=== PATIENT | female | born 1960 | race Caucasian/White ===

== ENCOUNTER → 2016-05-28 | Outpatient (CLI) | payer OTHER ==
[~2016-05-28] MED LIST: NORCO 5-325 TA1 EACH PO
== END | disposition home or self-care (01) ==
LOC: RAD 16:11
DX: R05 Cough (principal); F17.200 Nicotine dependence, unspecified, uncomplicated; Z72.0 Tobacco use

== ENCOUNTER 2016-06-17 16:07 | Emergency (ER) | payer OTHER ==
[~2016-06-17] VITALS: Wt 68.0 kg
[2016-06-17] MEDS ORDERED: ANAPROX DS550 MG PO (17:33)
[2016-06-17] MEDS ORDERED: HYCODAN/HYDROMET5 ML PO (17:33)
[2016-06-17] MEDS ORDERED: TESSALON PERLE100 M1 PO (17:33)
== END 2016-06-17 17:37 | disposition home or self-care (01) ==
LOC: ED 16:07
DX: M94.0 Chondrocostal junction syndrome [Tietze] (principal); R05 Cough; F17.200 Nicotine dependence, unspecified, uncomplicated; Z79.899 Other long term (current) drug therapy

== ENCOUNTER 2016-07-02 15:20 | Emergency (ER) | payer OTHER ==
[~2016-07-02] VITALS: Ht 162.5 cm; Wt 67.6 kg
[~2016-07-02 15:20] MED LIST changes: +ANAPROX DS550 MG PO; +HYCODAN/HYDROMET5 ML PO; +TESSALON PERLE100 M1 PO
[2016-07-02] MEDS ORDERED: METFORMIN500 MG PO (15:32)
[2016-07-02] MEDS ORDERED: LISINOPRIL5 MG PO (15:32)
[2016-07-02] MEDS ORDERED: LIPITOR10 MG PO (15:33)
[2016-07-02 16:30] LABS: BASO % 0.3 % (0.0-1.0); EOS # 0.1 10*3/uL (0.0-0.4); EOS % 0.9 % (1.0-4.0); IG # 0.1 10*3/uL (0.0-0.1); LYMPH # 2.7 10*3/uL (1.3-4.4); LYMPH % 21.7 % (27.0-41.0); MEAN CELL VOLUME 90.6 fl (81.0-99.0); MEAN CORPUSCULAR HGB 30.2 pg (27.0-31.0); MEAN CORPUSCULAR HGB CONC 33.3 g/dl (33.0-37.0); MEAN PLATELET VOLUME 8.5 fl (9.6-12.3); MONO # 0.6 10*3/uL (0.1-1.0); MONO % 4.9 % (3.0-9.0); NEUT % 71.7 % (47.0-73.0); PLATELET COUNT AUTOMATED 370 10*3/uL (130-400); RED BLOOD COUNT 3.31 10*6/uL (4.10-5.10); RED CELL DISTRI WIDTH 13.2 % (0-14.5); WHITE BLOOD COUNT 12.6 10*3/uL (4.8-10.8)
[2016-07-02 16:47] LABS: BUN 17 mg/dl (7-24); CARBON DIOXIDE 28 mmol/L (21-32); CHLORIDE 101 mmol/L (98-107); EST GLOM FILT AFRICAN AMERICAN > 60 ml/min; GLUCOSE 99 mg/dL (65-99); POTASSIUM 4.4 mmol/L (3.5-5.1); SODIUM 137 mmol/L (136-145)
[2016-07-02] MEDS ORDERED: LEVAQUIN750 M1 PO (20:10)
[2016-07-02] MEDS ORDERED: HYDROCODONE BIT1 T11 PO (20:10)
[2016-07-02] MEDS ORDERED: XANAX0.25 MG PO (20:37)
== END 2016-07-02 20:31 | disposition home or self-care (01) ==
LOC: ED 15:20
PROVIDERS: Physician Assistant
DX: R91.8 Other nonspecific abnormal finding of lung field (principal); F17.200 Nicotine dependence, unspecified, uncomplicated; Z79.899 Other long term (current) drug therapy

== ENCOUNTER → 2016-07-03 | Outpatient (CLI) | payer OTHER ==
[~2016-07-03] MED LIST changes: +HYDROCODONE BIT1 T11 PO; +LEVAQUIN750 M1 PO; +LIPITOR10 MG PO; +LISINOPRIL5 MG PO; +METFORMIN500 MG PO; +XANAX0.25 MG PO
== END | disposition home or self-care (01) ==
LOC: LAB 11:00
PROVIDERS: Internal Medicine Critical Care Medicine
DX: R05 Cough (principal)

== ENCOUNTER 2016-08-21 22:29 | Emergency (ER) | payer OTHER ==
[~2016-08-21] VITALS: Ht 162.5 cm; Wt 67.1 kg
[2016-08-21 23:22] LABS: BUN 18 mg/dl (7-24); CARBON DIOXIDE 27 mmol/L (21-32); CHLORIDE 104 mmol/L (98-107); EST GLOM FILT AFRICAN AMERICAN > 60 ml/min; GLUCOSE 136 mg/dL (65-99); POTASSIUM 4.1 mmol/L (3.5-5.1); SODIUM 138 mmol/L (136-145)
[2016-08-21 23:43] LABS: BILIRUBIN NEGATIVE (NEGATIVE); BLOOD 3+ (NEGATIVE); CLARITY CLOUDY (CLEAR); COLOR YELLOW (YELLOW); GLUCOSE NEGATIVE (NEGATIVE); KETONE NEGATIVE (NEGATIVE); LEUKO ESTERASE 2+ (NEGATIVE); NITRITE POSITIVE (NEGATIVE); PH 5.5 (5.0-9.0); PROTEIN 2+ (NEGATIVE); SPECIFIC GRAVITY 1.025 (1.005-1.030); UROBILINOGEN 0.2 E.U./dl (0.2-1.0)
[2016-08-21 23:47] LABS: BACTERIA 4+; EPITHELIAL CELLS 0-2; RBC TNTC rbc/hpf (0-2); URINE REFLEX COMMENT YES (NO); WBC TNTC wbc/hpf (0-5)
[2016-08-21] MEDS ORDERED: PYRIDIUM100 MG PO (23:58)
[2016-08-21] MEDS ORDERED: MACROBID100 M1 PO (23:58)
== END 2016-08-22 00:26 | disposition home or self-care (01) ==
LOC: ED 22:29
PROVIDERS: Physician Assistant
DX: N30.01 Acute cystitis with hematuria (principal); N20.0 Calculus of kidney; F17.200 Nicotine dependence, unspecified, uncomplicated; Z79.899 Other long term (current) drug therapy

== ENCOUNTER → 2016-08-29 | Outpatient (CLI) | payer OTHER ==
[~2016-08-29] MED LIST changes: +MACROBID100 M1 PO; +PYRIDIUM100 MG PO
== END | disposition home or self-care (01) ==
LOC: CT 09:00
DX: R10.9 Unspecified abdominal pain (principal)

== ENCOUNTER → 2017-02-27 | Outpatient (CLI) | payer OTHER | END | disposition home or self-care (01) | LOC: CT 10:00 | DX: J85.1 Abscess of lung with pneumonia (principal); Z87.891 Personal history of nicotine dependence ==

== ENCOUNTER → 2019-03-07 | Outpatient (CLI) | payer OTHER ==
[~2019-03-07] MED LIST changes: +CEPHALEXIN500 M1 PO; +DIFLUCAN150 MG PO; +Tobrex Ophth S2.5 ML OPH
== END | disposition home or self-care (01) ==
LOC: MAMMO 14:00
DX: Z12.31 Encounter for screening mammogram for malignant neoplasm of breast (principal)

== ENCOUNTER → 2020-06-09 | Outpatient (CLI) | payer OTHER | END | disposition home or self-care (01) | LOC: RAD 17:01 | PROVIDERS: ATTEND Internal Medicine | DX: M50.30 Other cervical disc degeneration, unspecified cervical region (principal); M48.02 Spinal stenosis, cervical region; I65.23 Occlusion and stenosis of bilateral carotid arteries ==

== ENCOUNTER → 2021-02-15 | Outpatient (CLI) | payer OTHER | END | disposition home or self-care (01) | LOC: COVID19 16:54 | PROVIDERS: ATTEND Internal Medicine | DX: Z20.822 Contact with and (suspected) exposure to COVID-19 (principal) ==

== ENCOUNTER → 2021-02-26 | Outpatient (CLI) | payer OTHER | END | disposition home or self-care (01) | LOC: COVID19 15:11 | PROVIDERS: ATTEND Internal Medicine | DX: U07.1 COVID-19 (principal) ==

== ENCOUNTER 2024-10-23 12:25 | Emergency (ER) | payer OTHER ==
[~2024-10-23] VITALS: Ht 162.6 cm; Wt 61.2 kg
[2024-10-23] MEDS ORDERED: PREDNISONE10 M1 PO (13:52)
[2024-10-23] MEDS ORDERED: VISTARIL25 MG PO (13:52)
== END 2024-10-23 13:09 | disposition home or self-care (01) ==
LOC: ED 12:25
DX: L23.7 Allergic contact dermatitis due to plants, except food (principal); Z79.899 Other long term (current) drug therapy; Z79.84 Long term (current) use of oral hypoglycemic drugs; Z87.442 Personal history of urinary calculi